=== PATIENT | male | born 1970 | race Caucasian/White ===

== ENCOUNTER 2022-11-22 11:00 | Outpatient (RCR) | payer MEDICAID, SELFPAY ==
--- NOTE | 2022-10-30 10:45 | HP.PTEVAL ---
Patient's Visit Information JOURDAN HALL II is a 52 year old M referred to Physical Therapy by [facility] with a diagnosis of Left TKR 10/17/22. Date of Evaluation: 10/30/22 Physical Therapist: Cristina Mayen DPT - Visit Plan Frequency: 1-2x /Week Duration: 4 Weeks Plan: Left TKR 10/17/22- Focus on LE ROM, strength and functional mobility. HEP Given IE: Step flexion/extn stretch, SLR, Quad set, seated heel slide and extn stretch - Subjective Left TKR Oct 17, 2022- went home after surgery- no home health- wear and tear prior- did not have PT prior to surgery. 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 He has stairs into his home but once inside he is all on one floor. Sleep: disturbed- throbbing- he is sleeping in a bed that is adjustable. Worst: 04/18 Agg: standing for long periods of time and night time. Eases: pain medication, ice and elevation. Best: 01/16. Pain is located in the whole knee and does radiate into the calf- no hip pain. No N/T in the toes. Describes the pain as dull and achy and throbbing at night. He is still taking Oxycodone 5 and Acetaminophen- takes 3 every 4 hours. Normally he is pretty active. They gave him some exercises at home. He is using the rollator in the community but nothing at home. PMHx: HTN Meds: diazpam, lisinopril. Had R TKR- about 2 years ago - Objective Posture: FH, RS-can correct but does not maintain. Gait: rollator with poor heel/toe pattern due to decreased extension. Stairs: asc/desc 8 recip with 2 HR- poor control with descent. HR/TR: able. SLS: 5 sec then LOB. Observation: incision healing well no s/s of infection. Palpation: tender along medial and lateral joint line. ROM: 15-105 degrees. Strength: Core: fair, Hip: 4+/5, SLR: mild lag, Knee Flexion: 15.8 Extn: 18.3, Ankle: 5/5. Flex: HS: severe, Gastroc: moderate Quad: severe. Girth: Patella: 50 cm 6 above: 62 cm - Balance/Special Test Scores Lower Extremity Functional Score: 19 TUG Test Time Seconds: 8.26 WOMAC Total Score: 69 WOMAC Percentatge: 28.1300 - Goals Goal 1:: Patient will be I with HEP and progression Goal Time Frame: 4-6 Weeks Goal 2:: Patient will ambulate >300 feet with no AD and normalized gait pattern Goal Time Frame: 4-6 Weeks Goal 3:: Patient will demo 0-120 degrees of ROM in the left knee Goal Time Frame: 4-6 Weeks Goal 4:: Patient will asc/desc 8 stairs recip with no HR Goal Time Frame: 4-6 Weeks Goal 5:: Patient will report 80% improvement Goal Time Frame: 4-6 Weeks - Rehabilitation Potential Physical Therapy Diagnosis: Patient presents with hypomobility- he has decreased LE and core strength/stabilization, ROM, flex and muscular endurance s/p Left TKR leading to abnormal gait and decreased ability to perform ADL's. Rehabilitation Potential: Good - Anticipated Interventions Patient/Client Instruction: Educate patient on: Benefits of Fitness Program Therapeutic Exercise to Include: Strength training, Endurance training, Balance training, Coordination, Agility training, Body mechanics, Postural training, Flexibilty training, Gait and locomotor training, Neuromotor development, Passive ROM, Active ROM, Dynamic Lumbar Stabilization, Scapular Strength/Stabilization For the Purpose of:: To improve muscle performance and motor function TENS: Yes Cryotherapy (ice pack, ice massage): Yes Thermo therapy (hot pack): Yes Ultrasound (thermal/non thermal): No Thank you for the opportunity to evaluate your patient. For Medicare and Medicare HMO plans, please review the plan of care and approve it. It will need to be FAXED BACK to us at [phone] for Medicare purposes. For Medicare only, by signing this I certify the plan of care. Please let me know if there are questions or concerns regarding this plan of care. Physician Signature: Date:
--- NOTE | 2023-03-25 12:21 | HP.PT.NRP ---
Patient Information Patient Information: JOURDAN HALL II was seen in my office for initial evaluation on 10/30/22. The following Plan of Care was established for this patient: POC Established Initial Frequency: 1-2x /Week Initial Duration: 4 Weeks Anticipated Interventions Patient/Client Instruction: Educate patient on: Benefits of Fitness Program Therapeutic Exercise to Include: Strength training, Endurance training, Balance training, Coordination, Agility training, Body mechanics, Postural training, Flexibilty training, Gait and locomotor training, Neuromotor development, Passive ROM, Active ROM, Dynamic Lumbar Stabilization and Scapular Strength/Stabilization For the Purpose of:: To improve muscle performance and motor function TENS: Yes Cryotherapy (ice pack, ice massage): Yes Thermo therapy (hot pack): Yes Ultrasound (thermal/non thermal): No Last Seen Last Seen: This patient was last seen in our office . Pertinent comments regarding their Physical therapy will appear below: Patient has not attended PT in over 8 weeks and is appropriate to be d/c. At this point I will be discontinuing this patient from physical therapy. I would be happy to see this patient again in the future if found appropriate by the physician. Thank you! Cristina Mayen DPT Balance/Gait/Functional tests Balance/Special Test Scores Lower Extremity Functional Score: 19 TUG Test Time Seconds: 8.26 Tug Test: <10 sec.=free mobile WOMAC Total Score: 69 WOMAC Percentage: 28.1300
== END 2022-11-22 19:00 | disposition home or self-care (01) ==
LOC: PT 11:00
DX: M17.12 Unilateral primary osteoarthritis, left knee (principal)
CPT/HCPCS: 97110; 97162